=== PATIENT | male | born 1980 | race Caucasian/White ===

== ENCOUNTER 2024-08-12 12:01 | Emergency (ER) | payer OTHER, SELFPAY ==
--- NOTE | ~2024-08-12 | CT_ITS ---
CT brain wo con Ordering provider: Lucero Rodriguez PA-C History: 44 years Male with . right arm paresthesias . Comparison: None. Technique: CT of the head without contrast. Radiation reduction technique utilized.The dose-length product was 605.33 mGy-cm. FINDINGS: BRAIN PARENCHYMA AND CSF SPACES: No midline shift, mass effect or hemorrhage. The brain parenchyma a nd CSF spaces are otherwise normal. VISUALIZED PARANASAL SINUSES: Well aerated. MASTOIDS: Well aerated. BONES: The bones appear intact. SOFT TISSUES: Visualized nasopharynx is normal. Superficial soft tissues are normal. IMPRESSION: No acute intracranial findings. Reviewed, dictated and finalized at location A.
--- NOTE | ~2024-08-12 | CT_ITS ---
History: Right upper extremity weakness PROCEDURE: CT cervical spine without intravenous contrast. COMPARISON: None TECHNIQUE: Multiple contiguous axial images of the cervical spine were performed without the administration of i ntravenous contrast. DLP: 439 mGy-cm FINDINGS: Straightening and slight reversal of the normal curvature of the cervical spine is identified, likely muscular in origin. No acute fractures are present. Ossification of the posterior longitudinal ligament. The bilateral lung apices are unremarkable. No soft tissue abnormality is present. The airway is patent. Impression: Straightening and slight reversal of the normal curvature of the cervical spine, likely muscular in o rigin. Degenerative disease, without acute fracture. Reviewed, dictated and finalized at location A. Impression: Straightening and slight reversal of the normal curvature of the cervical spine , likely muscular in origin. Degenerative disease, without acute fracture.
[2024-08-12 12:19] VITALS: BP 156/100; PULSE 71; RESP 16; TEMP 36.4; O2SAT 98
--- NOTE | 2024-08-12 13:31 | ED_ITS ---
HPI - Extremity Problem General Chief complaint: Extremity Problem,Nontraumatic Stated complaint: Right arm numbness/tingling-constant x 3-4 days Time Seen by Provider: 08/12/24 13:31 Focused HPI: This is a 44 year old male that presents to the ER for right arm paresthesias/pain. Ongoing over the last 2 weeks. Reports it was intermittent initially, is now constant. No known injuries. 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 Reports history of degenerative disc disease. GENERAL: Well-appearing, well-nourished, and in no acute distress. HEAD: Normocephalic, atraumatic. CHEST: Clear to auscultation. No respiratory distress. HEART: Regular rate and rhythm. NEURO: Alert and oriented x3. Patient screened in triage and initial orders placed. Additional care and disposition to be based upon diagnostic testing and treatment. Related Data Allergies Allergy/AdvReac Type Severity Reaction Status Date / Time No Known Allergies Allergy Verified 08/12/24 12:03 Review of Systems Review of Systems: All systems reviewed & are unremarkable except as noted in HPI and below Course Vital Signs Vital signs: Vital Signs Temperature 97.6 F 08/12/24 12:19 Pulse Rate 71 08/12/24 12:19 Respiratory Rate 16 08/12/24 12:19 Blood Pressure 156/100 H 08/12/24 12:19 Pulse Oximetry 98 08/12/24 12:19 Temperature 97.6 F 08/12/24 12:19 Pulse Rate 71 08/12/24 12:19 Respiratory Rate 16 08/12/24 12:19 Blood Pressure 156/100 H 08/12/24 12:19 Pulse Oximetry 98 08/12/24 12:19 MDM - Extremity (Nontraumatic) Imaging Data Radiologist's impression: ITS Impressions Head CT 08/12/24 13:44 IMPRESSION: No acute intracranial findings. Cervical Spine CT 08/12/24 13:52 Impression: Straightening and slight reversal of the normal curvature of the cervical spine, likely muscular in origin. Degenerative disease, without acute fracture. Discharge Plan Discharge Clinical Impression: Paresthesia, Cervical radiculopathy Patient Disposition: Home Condition: Stable Instructions: Antibiotic Form, How to Use a Sling (ED), Cervical Radiculopathy (ED) Additional Instructions: Medrol Dosepak as directed. sling for comfort. Have close follow-up with Neurosurgery. If you have any worsening symptoms please call or return to the emergency department. Patient Language: [place] Citizen Prescriptions: New methylprednisolone [Medrol (Luis)] 4 mg tablets,dose pack See Rx Instructions .ROUTE .COMPLEX Qty: 21 0RF Rx Instructions: for 6 days Follow-up/Referrals: Luzma Castillo MD [Physician] - PHYSICIAN NOT ON STAFF,NONSTAFF [Non-Staff] -
--- OUTSIDE RECORDS SUMMARY | 2024-08-12 14:30 | XMS_ITS | Clinical Summary ---
Author Organization [facility] Address [address] [place] [id number] Care Team Providers Care Alligator Trapper Name Role Phone Unavailable Primary Care Provider Unavailabl e Social History Tobacco Use Types Packs/Day Years Used Date Smoking Tobacco: Never Assessed Sex and Gender Information Value Date Recorded Sex Assigned at Not on file Legal Sex Male 8:10 PM CDT Gender Identity Not on file Sexual Orientation Not on file Plan of Treatment Health Maintenance Due Date Last Done Comments Colorectal Cancer Screening Colonoscopy (10 Years) 1979 Annual Physical 1982 Hepatitis C 1997 DTaP, Tdap and Td Vaccines ( 1 - Tdap) 1998 Hepatitis B Vaccines (1 of 3 - 19+ 3-dose series) 1998 COVID-19 Vaccine (2023-2 5 season) 2023 HPV Vaccines Aged Out No longer eligi ble based on patient's age to complete this topic Meningococcal B Vaccine Aged Out No l onger eligible based on patient's age to complete this topic Meningococcal Vaccine Aged Out No lyndon hiram eligible based on patient's age to complete this topic Pneumococcal Vaccine: Pediat rics (0 to 5 Years) and At-Risk Patients (6 to 49 Years) Aged Out No longer eligible b ased on patient's age to complete this topic RSV Immunizations Under 20 Months Aged Out No longer eligible based on patient's age to complete this topic
--- OUTSIDE RECORDS SUMMARY | 2024-08-12 14:30 | XMS_ITS | Referral Summary ---
Author Organization [facility] Address [address] [place] [address] Care Team Providers Care Mica Builder Name Role Phone Rick Crowe MD Primary Care Provider [phone] Allergies Active Allergy Reactions Criticality Noted Date Comments Doxycycline Nausea only Low 11/12/2021 Insect Venom Swelling Medium 11/12/2021 Medications hydrocortisone (ANUSOL-HC) 25 mg suppository Insert 1 suppository (25 mg total) into the rectum 2 (two) times a day 12 suppository 12/08/19 23 Active docusate sodium (COLACE) 100 mg capsuleIndicati ons:constipatio n Take 1 capsule (100 mg total) by mouth 2 (two) times a day for 7 days 14 capsule 12/08/19 23 Active naproxen (NAPROSYN) 500 mg tablet Take 1 tablet (500 mg total) by mouth 2 (two) times a day with meals 60 tablet 03/30/19 25 Active Active Problems Problem Noted Date Diagnosed Date Notalgia 07/20/2015 Cervical radiculopathy 04/21/2015 Muscle weakness of upper extremity 04/21/2015 Cervicalgia 03/10/2015 Pain in shoulder 02/13/2015 Closed fracture of distal end of fibula with tib ia 01/14/2015 Social History Tobacco Use Types Packs/Day Years Used Date Smoking Tobacco: Former Personal Safety Answer Date Recorded Have you ever been in or are you currently in a harmful physical or emotional relationship or is someone making you feel afraid or unsafe? 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 Gender Identity Not on file Sexual Orientation Not on file Last Filed Vital Signs Vital Sign Reading Time Taken Comments Blood Pressure 134/89 03/30/2024 7:30 PM LOADING MACHINE OPERATOR Pulse 76 03/30/2024 7:30 PM LOADING MACHINE OPERATOR Temperature 36.3 C (97.3 F) 03/30/2024 3:53 PM LOADING MACHINE OPERATOR Respiratory Rate 14 03/30/2024 7:30 PM LOADING MACHINE OPERATOR Oxygen Saturation 97% 03/30/2024 7:30 PM LOADING MACHINE OPERATOR Inhaled Oxygen Concentration - - Weight 104.4 kg (230 lb 2.6 oz) 03/30/2024 3:53 PM LOADING MACHINE OPERATOR Height 185.4 cm (6' 1 ) 03/30/2024 3:53 PM LOADING MACHINE OPERATOR Body Mass Index 30.37 03/30/2024 3:53 PM LOADING MACHINE OPERATOR Plan of Treatment Not on file Care Teams Mica Builder Relationship Specialty Start Date End Date Rick Crowe MD [address] [facility] [address] [place] [address] PCP - General 04/20/17
--- OUTSIDE RECORDS SUMMARY | 2024-08-12 14:30 | XMS_ITS | Clinical Summary ---
Author Organization [facility] Address [address] [place] [address] Care Team Providers Care Food Service Coordinator Name Role Phone Rick Crowe MD Primary Care Provider [phone]- [phone] Allergies Active Allergy Reactions Criticality Noted Date [...] end of fibula with tib ia 01/14/2015 Family History Medical History Relation Name Comments Blood Clot Mother Family history of blood clots - (Added by TW Conv) Relation Name Status Comments Mother Social History Tobacco Use Types Packs/Day Years Used Date Smoking Tobacco: Former Personal Safety Answer Date Recorded Have you ever been in or are you currently in a harmful physical or emotional relationship or is someone making you feel afraid or unsafe? Denies 03/30/2024 Sex and Gender Information Value Date Recorded Sex Assigned at Not on file Legal Sex Male 6:17 AM LABOR REPRESENTATIVE Gender Identity Not on file Sexual Orientation Not on file Obstetrics History Last Filed Vital Signs Vital Sign Reading Time Taken Comments Blood Pressure 134/89 03/30/2024 7:30 PM LABOR REPRESENTATIVE Pulse 76 03/30/2024 7:30 PM LABOR REPRESENTATIVE Temperature 36.3 C (97.3 F) 03/30/2024 3:53 PM LABOR REPRESENTATIVE Respiratory Rate 14 03/30/2024 7:30 PM LABOR REPRESENTATIVE Oxygen Saturation 97% 03/30/2024 7:30 PM LABOR REPRESENTATIVE Inhaled Oxygen Concentration - - Weight 104.4 kg (230 lb 2.6 oz) 03/30/2024 3:53 PM LABOR REPRESENTATIVE Height 185.4 cm (6' 1 ) 03/30/2024 3:53 PM LABOR REPRESENTATIVE Body Mass Index 30.37 03/30/2024 3:53 PM LABOR REPRESENTATIVE Plan of Treatment Health Maintenance Due Date Last Done Comments Colon Cancer Screening-Colonoscopy 1979 Depression Screening 1979 Hepatitis C Screening 1979 DTaP/Tdap/Td Vaccine (1 - Tdap) 1990 Hepatitis B Screening 1997 Regular Well Visit/Exam 18-64 1997 Influenza Vaccine (#1) 2023 HPV Vaccines Aged Out No longer eligi ble based on patient's age to complete this topic Pneumococcal vaccine <65 Aged Out No longer eligible based on patient's age to complete this topic Care Teams Food Service Coordinator Relationship Specialty Start Date End Date Rick Crowe MD [address] [facility] [address] [place] [address] PCP - General 04/20/17
--- OUTSIDE RECORDS SUMMARY | 2024-08-12 14:30 | XMS_ITS | Data Portability ---
Author Organization [facility], [employer] Address [address] [address] Care Team Providers Care Timber Sprinkler Name Role Phone RICK NOBLE Primary Care Provider Assessment Encounter Date Assessment Date Assessment LastModified by Organization Details LastModified Time 10/28/2020 10/28/2020 Patient presente d for follow up. Studies ordered as below. Discussed plan with patient/caregiver , who expressed understanding. Follow up as noted below. [email or web address] Not available 10/28/2020 18:41:24 11/15/2021 11/15/2021 Patient presente d for follow up. Studies ordered as below. Discussed plan with patient/caregiver , who expressed understanding. Follow up as noted below. Not available 11/15/2021 10:16:20 03/09/2022 03/09/2022 Patient presente d for follow up. Studies ordered as below. Discussed plan with patient/caregiver , who expressed understanding. Follow up as noted below. Not available 03/09/2022 12:49:52 10/21/2022 10/21/2022 Patient presente d to office today for their Medicare Annual Wellness Visit. Education was provided on healthy nutrition, including a diet rich in fruits and vegetables, minimizing simple carbohydrates, salt, and saturated fats. Encouraged regular cardiovascular exercise such as walking at least 30 minutes daily, 5 times per week. Emphasized preventive health measures and educated pt on fall prevention and community-based lifestyle interventions to help reduce health risks and promote healthy living. Not available 10/21/2022 12:40:04 03/08/2024 03/08/2024 Patient presente d for follow up. Studies ordered as below. Discussed plan with patient/caregiver , who expressed understanding. Follow up as noted below. Not available 03/08/2024 12:01:47 Plan of Treatment Reminders Order Date Submit Date Provider Last Modified By Organization Details Last Modified Time Details Appointments ESTABLISH ED PATIENT 15 2024 10:30A M Rick Noble MD Not available Not available Not available Lab testoster one, free + total, serum [address] [facility], [address] [facility], [place], [address], 07/15/2024 12:51:19 influenza virus A + B and SARS CoV 2 (COVID-19 ) and RSV RNA panel, MIRI+probe , respirato ry specimen 2023 024 [facility], [address] [facility], [place], [address], 03/08/2024 12:39:00 lipid panel w/ direct LDL, serum [address] [facility], [address] [place], [address], 07/15/2024 12:51:19 CMP, serum or plasma [address] [facility], [address] [place], [address], 07/15/2024 12:51:19 CBC w/ auto diff [address], [address] [place], [address], 07/15/2024 12:51:19 TSH, serum or plasma [address] [facility], [address] [facility], [place], [address], 07/15/2024 12:51:19 lipid panel w/ direct LDL, serum 2022 023 [email or web address] Not available 10/28/2022 09:11:25 CMP, serum or plasma 2022 023 [email or web address] Not available 10/28/2022 09:11:25 CBC w/ auto diff 2022 023 [email or web address] Not available 10/28/2022 09:11:26 TSH + free T4, serum 2022 023 [email or web address] Not available 10/28/2022 09:11:26 hepatitis C Ab, serum 2022 023 [email or web address] Not available 10/28/2022 09:11:26 HbA1c (hemoglob in A1c), blood 2022 023 REINALDO Not available 10/21/2022 13:18:47 ALT (alanine aminotran sferase), serum or plasma 2021 022 REINALDO Not available 11/16/2021 16:20:44 ESR (erythroc yte sedimenta tion rate), blood 2021 022 REINALDO Not available 11/16/2021 16:20:46 drug screen, urine 2021 022 [email or web address] Not available 07/02/2024 15:23:28 TSH, serum or plasma 2021 022 [email or web address] Not available 07/02/2024 15:23:29 hepatitis C Ab, serum 2021 022 REINALDO Not available 11/16/2021 16:20:44 TSH, serum or plasma 2021 022 REINALDO Not available 11/16/2021 16:20:46 lipid panel w/ direct LDL, serum 2021 022 [email or web address] Not available 07/02/2024 15:23:28 testoster one, free + total, serum 2020 021 [email or web address] Not available 11/04/2020 14:07:58 PSA, serum or plasma 2020 021 [email or web address] Not available 11/04/2020 14:07:58 hepatitis C Ab, serum 2020 021 [email or web address] Not available 11/04/2020 14:07:58 lipid panel w/ direct LDL, serum 2020 021 [email or web address] Not available 11/04/2020 14:07:58 CMP, serum or plasma 2020 021 [email or web address] Not available 11/04/2020 14:07:57 CBC w/ auto diff 2020 021 [email or web address] Not available 11/04/2020 14:07:57 TSH + free T4, serum 2020 021 [email or web address] Not available 11/04/2020 14:07:57 drug screen, urine 2020 021 [email or web address] Not available 11/04/2020 14:07:[address] referral [email or web address], [address] [place], [address], 07/15/2024 12:51:[address] referral [address], [address] [place], [address], 07/15/2024 12:51:38 dermatolo gist referral 2022 023 [email or web address] Laura Echevarria, [address] [facility] , [place], [address], 07/15/2024 12:51:37 orthopedi c surgeon referral 2021 022 norberto Escudero MD, [address] [facility] , [address], [address], 07/11/2024 12:17:[address] referral [email or web address] [facility], [address] [place], [address], 07/02/2024 15:23:46 orthopedi c surgeon referral 2020 021 norberto Escudero MD, [address] [facility] , [address], [place], [address], 11/25/2020 17:22:[address] referral 2020 021 norberto [facility], [address] [facility], [place], [address], 11/25/2020 17:22:50 Procedures None recorded. Surgeries None recorded. Imaging XR, chest, 2 view 2023 024 sneal [facility] [address], [address], [place], [address], 07/15/2024 12:51:27 MRI, knee, w/o contrast 2021 022 REINALDO [facility] [address], [address], [place], [address], 03/10/2022 16:42:51 MRI, head, w/wo contrast 2021 022 [facility], [address] [place] [address], [place], [address], 07/02/2024 15:23:15 Medication Orders doxycycli ne hyclate 100 mg capsule 2023 024 [facility], [address] [place], [address], 03/08/2024 12:38:26 Mucinex DM 30 mg-600 mg tablet,ex tended release 12 hr 2023 025 [facility], [address] [place], [address], 06/01/2024 21:44:31 Flonase Allergy Relief 50 mcg/actua tion nasal spray,iza pension 2022 023 [facility], [address] [facility] [address], [place], [address], 03/08/2024 12:22:29 Karen Allergy 180 mg tablet 2022 023 [facility], [address] [facility] [address], [place], [address], 03/08/2024 12:22:51 Zithromax Z-Luis 250 mg tablet 2022 023 [facility], [address] [facility] [address], [place], [address], 03/08/2024 12:21:54 Voltaren Arthritis Pain 1 % topical gel 2021 023 [facility], [address] [facility] [address], [place], [address], 10/21/2022 13:11:44 Nucynta 50 mg tablet 2021 022 [facility], [address] [facility] [address], [place], [address], 10/07/2022 10:32:41 amoxicill in 875 mg-potass ium clavulana te 125 mg tablet 2021 022 [email or web address] Not available 03/08/2024 12:21:51 dextroamp hetamine- amphetami ne 10 mg tablet 2020 021 [email or web address] Not available 10/07/2022 10:32:17 Patient TargetsNo targets recorded. Patient Instructions Encounter Date Encounter Id Patient Instructions Last Modified By Organization Details Last Modified Time 10/28/2020 [id number] infection from tattoos: care instructions [email or web address] Not available 10/28/2020 19:17:31 attention defici t hyperactivity disorder (ADHD) in adults: care instructions [email or web address] Not available 10/28/2020 19:17:31 11/15/[id number] headache: care instructions [email or web address] Not available 11/15/2021 10:49:37 attention defici t hyperactivity disorder (ADHD) in adults: care instructions [email or web address] Not available 11/15/2021 10:49:36 infection from tattoos: care instructions mshenouda Not available 11/15/2021 10:49:37 body mass index: care instructions mshenouda Not available 11/15/2021 10:49:37 learning about healthy weight mshenouda Not available 11/15/2021 10:49:36 10/21/2022 [id number] medicare preventive services guide mshenouda Not available 10/21/2022 13:18:44 advance care planning: care instructions mshenouda Not available 10/21/2022 13:18:44 attention defici t hyperactivity disorder (ADHD) in adults: care instructions mshenouda Not available 10/21/2022 13:18:44 infection from tattoos: care instructions mshenouda Not available 10/21/2022 13:18:44 body mass index: care instructions mshenouda Not available 10/21/2022 13:18:43 learning about healthy weight mshenouda Not available 10/21/2022 13:18:43 Discussed and explained advance directives such as standard forms to the {{patient* caregi jesús patient and caregiver}}. Face to face discussion lasted for a duration of _3__ minutes. [email or web address] Not available 10/21/2022 13:18:38 03/08/2024 [id number] infection from tattoos: care instructions mshenouda Not available 03/08/2024 12:29:19 upper respirator y infection (cold): care instructions mshenouda Not available 03/08/2024 12:38:19 body mass index: care instructions mshenouda Not available 03/08/2024 12:29:20 learning about healthy weight mshenouda Not available 03/08/2024 12:29:20 attention defici t hyperactivity disorder (ADHD) in adults: care instructions mshenouda Not available 03/08/2024 12:29:19 living will mshenouda Not available 02/24 12:29:05 Reason for Referral Author Agent Referral for Scr eening procedure Referring Physician: Rick Noble, Internal Medicine, Encounter Date: 10/28/2020 Orthopedic Surgeon Referral for Pain of left shoulder joint Referring Physician: Rick Noble Internal Medicine, Encounter Date: 10/28/2020 Author Agent Referral for Scr eening procedure Referring Physician: Rick Noble Internal Medicine, Encounter Date: 11/15/2021 Orthopedic Surgeon Referral for Pain of right knee joint Referring Physician: Rick Noble Internal Medicine, Encounter Date: 03/09/2022 Space Systems Operations Manager Referral for L ocalized eruption of skin Referring Physician: Rick Noble Internal Medicine, Encounter Date: 10/21/2022 Author Agent Referral for Jesus lt health examination Referring Physician: Rick Noble Internal Medicine, Encounter Date: 10/21/2022 Author Agent Referral for Jesus lt health examination Referring Physician: Rick Noble Internal Medicine, Encounter Date: 03/08/2024 Results Created Date Observation Date Name Description Value Unit Range Abnormal Flag Note LastModifiedBy Organization Detail LastModifiedTime 11/16/19 22 11/15/2021 HEPAT ITIS C ANTIB ERIKA hepatitis C antibody NEGATI VE negati ve Not Available [facility] (Main Location) [facility] [address] ,[place], [address], 11/16/2021 16:20:44 11/16/19 22 11/15/2021 MIGUEL A NE AMINO TRANS FERAS E (ALT) alanine aminotransfe rase (ALT) 38 U/L 0-41 Not Available [facility] (Main Location) [address] ,, [place], [address], 11/16/2021 16:20:44 11/16/19 22 11/15/2021 DLDL dldl 93 mg/dL 0-100 Not Available [facility] (Main Location) [facility] [address] ,, [place], [address], 11/16/2021 16:20:45 11/16/19 22 11/15/2021 LIPID PANEL trigylceride s 180 mg/dL 0-150 high Not Available [facility] (Main Location) [facility] [address] ,, [place], [address], 11/16/2021 16:20:45 11/16/19 22 11/15/2021 LIPID PANEL cholesterol 165 mg/dL 0-200 Not Available [facility] (Main Location) [facility] [address] ,, [place], [address], 11/16/2021 16:20:45 11/16/19 22 11/15/2021 LIPID PANEL uhdl 41 mg/dL 35-55 Not Available [facility] (Main Location) [facility] [address] ,, [place], [address], 11/16/2021 16:20:45 11/16/19 22 11/15/2021 LIPID PANEL LDL, calculated 88 mg/dL 0-100 Not Available [facility] (Main Location) [facility] [address] ,, [place], [address], 11/16/2021 16:20:45 11/16/19 22 11/15/2021 LIPID PANEL LDL, measured 93 mg/dL <99 Not Available [facility] (Main Location) [facility] [address] ,, [place], [address], 11/16/2021 16:20:45 11/16/19 22 11/15/2021 LIPID PANEL LDL/HDL ratio 2 mg/dL 0-5 Not Available [facility] (Main Location) [facility] [address] ,, [place], [address], 11/16/2021 16:20:45 11/16/19 22 11/15/2021 LIPID PANEL VLDL 36.0 mg/dL 5.0-40 .0 Not Available [facility] (Main Location) [facility] [address] ,, [place], [address], 11/16/2021 16:20:45 11/16/19 22 11/15/2021 LIPID PANEL cholesterol/ HDL ratio 4.02 0.00-5 .00 Not Available [facility] (Main Location) [address] ,, [place], [address], 11/16/2021 16:20:45 11/16/19 22 11/15/2021 THYRO ID STIMU MARGE Jc HORMO NE (TSH) TSH 0.82 ?IU/m L 0.27-4 .20 Not Available [facility] (Main Location) [address] ,, [place], [address], 11/16/2021 16:20:46 11/16/19 22 11/15/2021 ERYTH ROCYT E SEDIM ENTAT ION RATE (ESR) sed rate 14 mm/HR 0-15 Not Available [facility] (Main Location) [address] ,, [place], [address], 11/16/2021 16:20:46 12/19/19 22 11/12/2021 CT, head, w/o contr ast No observ ation record ed. [facility] Not Available 2021 13:11:52 02/29/20 22 02/24/2022 XR, elbow , 3 or more view No observ ation record ed. [facility] [address], [place], [address], 03/09/2022 13:11:52 03/10/20 22 03/09/2022 MRI, knee, w/o contr ast No observ ation record ed. [facility] [address], [place], [address], 10/21/2022 13:03:55 06/01/19 25 03/30/2024 XR, chest , 1 view No observ ation record ed. REINALDO Not Available 2024 17:00:36 06/01/19 25 03/30/2024 elect rocar diogr am No observ ation record ed. [email or web address] Not Available 2024 21:46:05 Result Notes None recorded. Problems Name Problem SNOMED Code Status Onset Date Resolution Date Notes Provider Name and Address Organization Details Recorded Time Drug of abuse screen Active 2024 +ve for cannabino ids and cocaine 03/30/24 Rick Noble MD [address], [place], [address], [facility] 5 21:52:30 Microscop ic hematuria 761410309 Active 2024 iRck Noble MD [address], [place], [address], [facility] 5 21:45:30 Tobacco dependenc e in remission 947472113 Active 2017 JAE ARANDA APN [address], [place], [address], [facility] 8 16:35:34 Attention deficit hyperacti vity disorder, predomina ntly inattenti ve type 45337040 Active 2018 JAE ARANDA APN [address], [place], [address], [facility] 9 12:48:32 Tattoo of skin 178568588895 Active 2019 Rick Noble MD [address], [place], [address], [facility] 0 18:08:36 Primary erectile dysfuncti on 777006372 Active 2020 Rick Noble MD [address], [place], [address], [facility] 1 14:22:47 Long-term drug therapy Active 2021 Rick Noble MD [address], [place], [address], [facility] 2 10:39:57 Body mass index 30+ - obesity 591998034 Active 2021 Rick Noble MD [address], [place], [address], [facility] 2 10:47:40 Problem Notes None recorded. Procedures Surgical History None recorded. Imaging Results Imaging Date Name Status LastModified by Organization Details LastModified Time 11/12/2021 CT, head, w/o contrast completed [facility] Information not available 03/09/2022 13:11:52 02/24/2022 XR, elbow, 3 or more view completed [facility] [address], [place], [address], 03/09/2022 13:11:52 03/09/2022 MRI, knee, w/o contrast completed [facility] [address], [place], [address], 10/21/2022 13:03:55 03/30/2024 XR, chest, 1 view completed REINALDO Informa tion not available 06/03/2024 17:00:36 03/30/2024 electrocardiogram completed [facility] Informa tion not available 06/01/2024 21:46:05 Procedure Notes None recorded. Medical Equipment None Reported. Allergies Allergen ID Allergen Name Allergen Category Reaction Reaction Severity Criticality Documentation Date Start Date Code Code System Note Provider Name and Address Organization Details Recorded Time 4839 doxycycli ne Not available nausea Not available Not available 03/23/2016 3640 RxNorm CHENTE Arcos-BC [address] [facility] [address], [place], [address], [facility] 6 09:01:36 4840 insect venom environme nt Not available Not available Not available 03/23/2016 29925 UNK Bees CHENTE Arcos-BC [address], [place], [address], [facility] 6 09:01:58 Medications Name Sig Start Date Stop Date Status Note LastModified by Organization Details LastModified Time amoxicillin 500 mg capsule TAKE ONE CAPSULE EVERY 8 HOURS FOR 10 DAYS 03/08 completed Not Available Not Available Not Available prednisone 10 mg tablet TAKE 4 TABLETS BY MOUTH ONCE DAILY FOR 3 DAYS THEN 3 ONCE DAILY FOR 3 DAYS THEN 2 ONCE DAILY FOR 3 DAYS THEN 1 ONCE DAILY FOR 3 DAYS active Not Available Not Available No t Available doxycycline hyclate 100 mg capsule Take 1 capsule twice a day by oral route. 2023 active Not Available Not Available Not Avai lable clindamycin HCl 300 mg capsule TAKE 1 CAPSULE BY MOUTH EVERY 8 HOURS FOR 7 DAYS 11/18 completed Not Available Not Available Not Available azithromyci n 250 mg tablet TAKE 2 TABLETS BY MOUTH TODAY, THEN TAKE 1 TABLET DAILY FOR 4 DAYS DIRECTED 03/08 completed Not Available Not Available Not Available ibuprofen 800 mg tablet TAKE 1 TABLET BY MOUTH EVERY 8 HOURS NEEDED FOR PAIN 03/15 completed Not Available Not Available Not Available alprazolam 1 mg tablet TAKE 1 TABLET BY MOUTH 1 HOUR PRIOR TO COMING TO DOCTORS OFFICE FOR PROCEDURE . DO NOT DRIVE AFTER TAKING MEDICATIO N 03/15 completed Not Available Not Available Not Available benzonatate 200 mg capsule TAKE 1 CAPSULE BY MOUTH THREE TIMES A DAY FOR 10 DAYS 03/08 completed Not Available Not Available Not Available Lotrisone 1 %-0.05 % topical cream APPLY TO THE AFFECTED AND SURROUNDI NG AREAS OF SKIN BY TOPICAL ROUTE 2 TIMES PER DAY IN THE MORNING AND EVENING FOR 2 WEEKS 05/07 completed Not Available Not Available Not Available hydrocodone 5 mg-acetamin ophen 325 mg tablet TAKE 1 TABLET BY MOUTH EVERY 6 HOURS NEEDED FOR PAIN 03/15 completed Not Available Not Available Not Available meloxicam 15 mg tablet TAKE 1 TABLET BY MOUTH EVERY DAY 10/07 completed Not Available Not Available Not Available prednisone 20 mg tablet TAKE 2 TABLETS BY MOUTH EVERY DAY FOR 5 DAYS 03/08 completed Not Available Not Available Not Available dextroamphe tamine-amph etamine 10 mg tablet TAKE 1 TABLET BY MOUTH IN THE MORNING AND NOON EACH DAY 10/07 completed Not Available Not Available Not Available clonazepam 0.5 mg tablet TAKE 1/2 TO 1 (ONE-HALF TO ONE) TABLET BY MOUTH FOR UP TO TWICE DAILY FOR PANIC 10/21 completed Not Available Not Available Not Available sulfamethox azole 800 mg-trimetho prim 160 mg tablet 12/04 completed Not Available Not Available Not Available sildenafil 100 mg tablet Take 1 tablet every day by oral route for 90 days, for ER. 04/04 completed Not Available Not Available Not Available triamcinolo ne acetonide 0.1 % topical cream APPLY THIN COAT TO AFFECTED AREA TWICE A DAY 10/07 completed Not Available Not Available Not Available lidocaine-p rilocaine 2.5 %-2.5 % topical cream Apply 1 applicati on every day by topical route as needed. 12/03 completed Not Available Not Available Not Available ciclopirox 8 % topical solution 10/21 completed Not Available Not Available Not Available dextroamphe tamine-amph etamine ER 20 mg 24hr capsule,ext end release TAKE 1 CAPSULE BY MOUTH ONCE DAILY FOR 30 DAYS 10/07 completed Not Available Not Available Not Available oseltamivir 75 mg capsule Take 1 capsule twice a day by oral route for 5 days. 12/03 completed Not Available Not Available Not Available dextroamphe tamine-amph etamine 20 mg tablet TAKE 1 TABLET BY MOUTH EVERY DAY 10/21 completed Not Available Not Available Not Available sertraline 25 mg tablet TAKE 1 TABLET BY MOUTH ONCE DAILY 10/21 completed Not Available Not Available Not Available Adderall XR 10 mg capsule,ext ended release Take 1 capsule twice a day by oral route. 01/24 completed Not Available Not Available Not Available bisacodyl 5 mg tablet,amanda yed release 03/08 completed Not Available Not Available Not Available mupirocin 2 % topical ointment APPLY TO 4TH FINGER SKIN INFECTION TWICE DAILY FOR 10 DAYS 12/04 completed Not Available Not Available Not Available Levaquin 500 mg tablet Take 1 tablet every 24 hours by oral route. 03/08 completed Not Available Not Available Not Available Maxitrol 3.5 mg/mL-10,00 0 unit/mL-0.1 % eye drops,suspe nsion INSTILL 1 DROP INTO AFFECTED EYE(S) BY OPHTHALMI C ROUTE EVERY 8 HOURS 12/22 completed Not Available Not Available Not Available methylpredn isolone 4 mg tablets in a dose pack TAKE 6 TABLETS ON DAY 1 DIRECTED ON PACKAGE AND DECREASE BY 1 TAB EACH DAY FOR A TOTAL OF 6 DAYS 03/08 completed Not Available Not Available Not Available albuterol sulfate HFA 90 mcg/actuati on aerosol inhaler INHALE 1 TO 2 PUFFS BY MOUTH EVERY 4 TO 6 HOURS NEEDED FOR WHEEZING FOR 10 DAYS active Not Available Not Available No t Available dextroamphe tamine-amph etamine ER 30 mg 24hr capsule,ext end release TAKE 1 CAPSULE BY MOUTH EVERY DAY active Not Available Not Available No t Available ketoconazol e 2 % topical cream 10/07 completed Not Available Not Available Not Available fluticasone propionate 50 mcg/actuati on nasal spray,suspe nsion SPRAY 2 PUFFS INTO EACH NOSTRIL ONCE DAILY 03/08 completed Not Available Not Available Not Available naproxen 500 mg tablet active Not Available Not Available Not Available amoxicillin 875 mg-potassiu m clavulanate 125 mg tablet TAKE 1 TABLET BY MOUTH TWICE A DAY FOR 10 DAYS 03/08 completed Not Available Not Available Not Available Tylenol Extra Strength 500 mg tablet Take 1 tablet every 8 hours by oral route. 10/21 completed Not Available Not Available Not Available simethicone 80 mg chewable tablet 03/08 completed Not Available Not Available Not Available Fiber-Lax 625 mg tablet 03/08 completed Not Available Not Available Not Available tadalafil 20 mg tablet TAKE ONE TABLET BY MOUTH APPROXIMA TELY ONE HOUR BEFORE SEXUAL ACTIVITY. DO NOT USE MORE THAN ONE DOSE DAILY active Not Available Not Available No t Available Mucinex DM 30 mg-600 mg tablet,exte nded release 12 hr Take 1 tablet every 12 hours by oral route. 06/01 completed Not Available Not Available Not Available Mucinex 1,200 mg tablet, extended release Take 1 tablet twice a day by oral route. 05/07 completed Not Available Not Available Not Available Nucynta 50 mg tablet Take 1 tablet twice a day by oral route. 10/07 completed Not Available Not Available Not Available Zyrtec 10 mg capsule Take 1 capsule every day by oral route at bedtime. 12/03 completed Not Available Not Available Not Available Karen Allergy 180 mg tablet Take 1 tablet every day by oral route at bedtime. 03/08 completed Not Available Not Available Not Available EpiPen 2-Luis 0.3 mg/0.3 mL injection, auto-inject or as directed 2019 active Not Available Not Available Not Avai lable tadalafil 20 mg tablet (pulmonary hypertensio n) TAKE ONE TABLET BY MOUTH APPROXIMA TELY ONE HOUR BEFORE SEXUAL ACTIVITY. DO NOT USE MORE THAN ONE DOSE DAILY 11/15 completed Not Available Not Available Not Available Voltaren Arthritis Pain 1 % topical gel APPLY 2 GRAMS TO THE AFFECTED AREA(S) BY TOPICAL ROUTE 4 TIMES PER DAY 10/21 completed Not Available Not Available Not Available Vitals Date Recorded Body height Body mass index (BMI) Body weight Heart rate Respiratory rate Body temperature Systolic blood pressure Diastolic blood pressure Provider Name and Address Organization Details Last Updated DateTime 2 185.42 cm 30.5 kg/m2 190362. 84 g 84 /min 16 /min 98.7 [degF] 135 mm[Hg] 89 mm[Hg] [facility] Date Recorded Body height Body mass index (BMI) Body weight Body temperature Respiratory rate Heart rate Provider Name and Address Organization Details Last Updated DateTime 3 185.42 cm 28.5 kg/m2 47470.9 5 g 99.1 [degF] 16 /min 87 /min Rain[facility] 3 12:49:58 Date Recorded Systolic blood pressure Diastolic blood pressure Provider Name and Address Organization Details Last Updated DateTime 10/21/2022 133 mm[Hg] 83 mm[Hg] Rick Noble MD [address] [place] [address] [address], [place], [address], [facility] 10/21/2022 13:06:22 Date Recorded [id number]|2024-08-12 14:30:00|2024-08-12 11:47:00|XMS_ITS|SOL SMITH|External Medical Summaries|[id number]|" Patient Health Record Created on: August 12, 2024 Sylvain Gordon : 1980 Sex: Male Author Organization 1 OF Kimberlee quintana DPM [facility] Address [address] [place] [address] Care Team Providers Care Timber Sprinkler Name Role Phone Sebastien HAY, Rick Primary Care Provider Niru Steele Unavailable [phone] Allergies No Known Allergies Reason For Referral No Information Medications Medication SIG (Take, Route, Frequency, Duration) Notes Start Date End Date Status Adderall Active Social History Tobacco Use: Social History Observation Description Date Details (start date - stop date) Former Smoker NA - NA Tobacco Use/Smoking Question Answer Notes Are you a former smoker Plan Of Treatment No Information Medical (General) History Surgical History Surgery Date(Month/Year) "
--- NOTE | 2024-08-12 14:57 | ED_ITS ---
HPI - Extremity Problem General Chief complaint: Extremity Problem,Nontraumatic Stated complaint: Right arm numbness/tingling-constant x 3-4 days Time Seen by Provider: 08/12/24 13:31 History of Present Illness HPI Narrative: 44-year-old male presents to the emergency department for evaluation for right arm will intermittent numbness. 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 Patient states over the last few weeks he has had increasing paresthesias of the right arm but denies any specific incident of pain or injury. 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 HEAD: normocephalic, atraumatic. EYES: PERRLA/EOMI, conjunctivae clear. NOSE: Normal no drainage EARS:TMS clear with good light reflex. THROAT: Pharynx clear, no exudate. NECK: Supple. No adenopathy, no masses. RESPIRATORY: Airway patent, respirations nonlabored. Clear to auscultation bilaterally, no rales, rhonchi, wheezing. CARDIOVASCULAR: Regular rate and rhythm without murmurs rubs or gallops. ABDOMINAL: Soft, nontender, nondistended, normal bowel sounds MUSCULOSKELETAL: Moves all extremities. Strength/ROM intact, No edema, No calf tenderness. NEURO: Alert. Cranial nerves II through XII intact. Good gait. Good coordination SKIN: Warm, dry. Normal Color Course Vital Signs Vital signs: Vital Signs Temperature 97.6 F 08/12/24 12:19 Pulse Rate 71 08/12/24 12:19 Respiratory Rate 16 08/12/24 12:19 Blood Pressure 156/100 H 08/12/24 12:19 Pulse Oximetry 98 08/12/24 12:19 Temperature 97.6 F 08/12/24 12:19 Pulse Rate 71 08/12/24 12:19 Respiratory Rate 16 08/12/24 12:19 Blood Pressure 156/100 H 08/12/24 12:19 Pulse Oximetry 98 08/12/24 12:19 MDM - Extremity (Nontraumatic) MDM Narrative Medical decision making narrative: 44-year-old male presents emergency department for evaluation for paresthesia of the right arm. Imaging was negative for acute fracture dislocation. Patient was provided sling for comfort and started on Medrol Dosepak for concern for cervical radiculopathy. Patient was encouraged of close follow-up with Neurosurgery at the [facility] but patient was also provided follow-up for our neurosurgeons. Differential Diagnosis Differential diagnosis: Likely other (Cervical radiculopathy, cervical strain, shoulder injury, cervical spine) Imaging Data Radiologist's impression: Impressions Head CT 08/12/24 13:44 IMPRESSION: No acute intracranial findings. Cervical Spine CT 08/12/24 13:52 Impression: Straightening and slight reversal of the normal curvature of the cervical spine, likely muscular in origin. Degenerative disease, without acute fracture. Discharge Plan Discharge Clinical Impression: Paresthesia, Cervical radiculopathy Patient Disposition: Home Condition: Stable Instructions: Antibiotic Form, How to Use a Sling (ED), Cervical Radiculopathy (ED) Additional Instructions: Medrol Dosepak as directed. sling for comfort. Have close follow-up with Neurosurgery. If you have any worsening symptoms please call or return to the emergency department. Patient Language: Canadian Prescriptions: New methylprednisolone [Medrol (Luis)] 4 mg tablets,dose pack See Rx Instructions .ROUTE .COMPLEX Qty: 21 0RF Rx Instructions: for 6 days Follow-up/Referrals: Luzma Castillo MD [Physician] - PHYSICIAN NOT ON STAFF,NONSTAFF [Non-Staff] -
== END 2024-08-12 15:18 | disposition home or self-care (01) ==
PROVIDERS: Emergency Provider Emergency Medicine
DX: R20.2 Paresthesia of skin (principal); M54.12 Radiculopathy, cervical region
CPT/HCPCS: 70450; 72125; 99284; A4565